=== PATIENT | male | born 2005 | race Native Hawaiian/Other Pacific Islander ===

== ENCOUNTER 2023-05-01 22:03 | Emergency (ER) | payer OTHER ==
[~2023-05-01] VITALS: Ht 172.7 cm; Wt 84.1 kg
[2023-05-01 22:03] VITALS: BP 119/60; TEMP 97.7; O2SAT 97
[2023-05-02] MEDS ORDERED: CEPH500C PO (00:13)
[2023-05-02] MEDS ORDERED: CEPHALEXIN 500 MG CAP PO ONE (00:15)
== END 2023-05-02 00:38 | disposition home or self-care (01) ==
LOC: M ED 22:03
DX: N47.1 Phimosis (principal); Z79.2 Long term (current) use of antibiotics

== ENCOUNTER 2025-02-18 07:48 | Emergency (ER) | payer OTHER ==
[~2025-02-18] VITALS: Ht 172.7 cm; Wt 93.7 kg
[~2025-02-18 07:48] MED LIST: CEPH500C PO
[2025-02-18] MEDS ORDERED: PRED20TA PO (09:21)
[2025-02-18] MEDS ORDERED: DIPH-435 PO (09:21)
[2025-02-18] MEDS: predniSONE 20 MG TAB PO ONE (09:34)
[2025-02-18 09:51] VITALS: BP 107/68; TEMP 96.9; O2SAT 98
== END 2025-02-18 10:01 | disposition home or self-care (01) ==
LOC: M ED 07:48
DX: T63.441A Toxic effect of venom of bees, accidental (unintentional), initial encounter (principal); Z79.52 Long term (current) use of systemic steroids; Z79.899 Other long term (current) drug therapy
CPT/HCPCS: 99283; J7512